=== PATIENT | female | born 1945 | race Caucasian/White ===

== ENCOUNTER 2021-11-15 17:37 | Inpatient (IN) | payer MEDICARE ==
[~2021-11-15] VITALS: Ht 154.9 cm; Wt 52.6 kg
[2021-11-15] MEDS ORDERED: IBUPROFEN 600 MG TAB PO STA (18:03)
[2021-11-15] MEDS: SODIUM CHLORIDE 0.9% 1000ML 1,000 ML IV SCH ×3 (18:15→21:00)
[2021-11-15] MEDS ORDERED: ACETAMINOPHEN 325 MG TAB PO ONE (18:15)
[2021-11-15] MEDS ORDERED: CEFTRIAXONE 1 GM VIAL IM ONE (18:15)
[2021-11-15 18:39] LABS: BASOPHILS % 0.2 % (0.0-1.0); HEMATOCRIT 40.3 % (34.2-44.1); HEMOGLOBIN 12.8 g/dL (12.0-16.0); LYMPHOCYTES # (AUTO) 0.9 (1.0-3.2); LYMPHOCYTES % 4.6 % (18.0-39.1); MEAN CORPUSCULAR HEMOGLOBIN 27.8 pg (28-32); MEAN CORPUSCULAR HGB CONC 31.8 g/dL (31-35); MEAN CORPUSCULAR VOLUME 87.6 fL (81-99); MONOCYTES # (AUTO) 1.6 (0.2-0.8); NEUTROPHILS # (AUTO) 17.3 (2.1-6.9); NEUTROPHILS % 86.5 % (38.7-80.0); PLATELET COUNT 238 x10e3/uL (140-360); RED CELL DISTRIBUTION WIDTH 13.5 % (11.7-14.4)
[2021-11-15 19:01] LABS: ALBUMIN 3.4 g/dL (3.5-5.0); ALBUMIN/GLOBULIN RATIO 1.3 (0.8-2.0); ANION GAP 15.4 mmol/L (8-16); CALCIUM 8.9 mg/dL (8.4-10.2); CREATININE, SERUM 0.75 mg/dL (0.57-1.11); POTASSIUM 4.4 mmol/L (3.5-5.1)
[2021-11-15] MEDS ORDERED: ONDANSETRON HCL INJ 2MG/ML 2ML 2 MG/ML VIAL IV PRN (19:30)
[2021-11-15 21:02] VITALS: BP 96/63
[2021-11-15 21:14] VITALS: BP 103/57
[2021-11-16] VITALS (11 sets, daily range): BP systolic 98–133; BP diastolic 47–61
[2021-11-16] MEDS ORDERED: METHOCARBAMOL750 MG PO (01:53)
[2021-11-16] MEDS ORDERED: BENICAR20 MG PO (01:53)
[2021-11-16] MEDS ORDERED: INDERAL XL80 MG PO (01:53)
[2021-11-16] MEDS ORDERED: OMEPRAZOLE40 MG PO (01:53)
[2021-11-16] MEDS ORDERED: PAMELOR25 MG PO (01:53)
[2021-11-16 06:48] LABS: BASOPHILS # (AUTO) 0.1 (0.0-0.1); BASOPHILS % 0.2 % (0.0-1.0); EOSINOPHILS % 0.1 % (0.0-6.0); HEMATOCRIT 35.1 % (34.2-44.1); HEMOGLOBIN 10.9 g/dL (12.0-16.0); LYMPHOCYTES # (AUTO) 1.3 (1.0-3.2); LYMPHOCYTES % 5.7 % (18.0-39.1); MEAN CORPUSCULAR HEMOGLOBIN 27.7 pg (28-32); MEAN CORPUSCULAR HGB CONC 31.1 g/dL (31-35); MEAN CORPUSCULAR VOLUME 89.3 fL (81-99); MONOCYTES # (AUTO) 1.7 (0.2-0.8); MONOCYTES % 7.8 % (4.4-11.3); NEUTROPHILS # (AUTO) 18.9 (2.1-6.9); NEUTROPHILS % 85.3 % (38.7-80.0); PLATELET COUNT 193 x10e3/uL (140-360); RED BLOOD COUNT 3.93 x10e6/uL (3.6-5.1); RED CELL DISTRIBUTION WIDTH 13.5 % (11.7-14.4)
[2021-11-16 07:06] LABS: ANION GAP 11.3 mmol/L (8-16); CALCIUM 8.6 mg/dL (8.4-10.2); CREATININE, SERUM 0.63 mg/dL (0.57-1.11); POTASSIUM 4.3 mmol/L (3.5-5.1)
[2021-11-16] MEDS: SODIUM CHLORIDE 0.9% 1000ML 1,000 ML IV SCH ×4 (07:29→20:55)
[2021-11-16] MEDS: CEFTRIAXONE 1 GM in SODIUM CHLORIDE 0.9% 50ML 50 ML IV SCH (09:15)
[2021-11-16] MEDS: ALBUTEROL SULF 0.083% NEB SOLN 3 ML NEB NEB SCH ×4 (10:45→22:25)
[2021-11-16] MEDS: IPRATROPIUM BROMIDE 0.02% 2.5 ML NEB NEB SCH ×4 (10:45→22:25)
[2021-11-16] MEDS ORDERED: ACETAMIN-CODE12.5 ML PO (11:52)
[2021-11-16] MEDS ORDERED: BUTORPHANOL (11:52)
[2021-11-16] MEDS ORDERED: ACETAMINOPHEN/CODEINE 300MG - 30MG TAB ONE (15:29)
[2021-11-16] MEDS: ENOXAPARIN SOD INJ 40 MG/0.4 ML SYR SC SCH (17:59)
[2021-11-16] MEDS: NORTRIPTYLINE HCL 25 MG CAP PO SCH (21:48)
[2021-11-16] MEDS: ACETAMINOPHEN/CODEINE 300MG - 30MG TAB PO PRN (23:19)
[2021-11-17] VITALS (7 sets, daily range): BP systolic 115–138; BP diastolic 62–75
[2021-11-17] MEDS: IPRATROPIUM BROMIDE 0.02% 2.5 ML NEB NEB SCH ×4 (02:20→19:00)
[2021-11-17] MEDS: ALBUTEROL SULF 0.083% NEB SOLN 3 ML NEB NEB SCH ×2 (02:20→06:35)
[2021-11-17] MEDS: SODIUM CHLORIDE 0.9% 1000ML 1,000 ML IV SCH ×2 (04:26→14:29)
[2021-11-17 05:47] LABS: BASOPHILS % 0.2 % (0.0-1.0); EOSINOPHILS % 0.2 % (0.0-6.0); HEMOGLOBIN 10.5 g/dL (12.0-16.0); LYMPHOCYTES # (AUTO) 1.4 (1.0-3.2); LYMPHOCYTES % 9.5 % (18.0-39.1); MEAN CORPUSCULAR HEMOGLOBIN 28.1 pg (28-32); MEAN CORPUSCULAR HGB CONC 31.8 g/dL (31-35); MEAN CORPUSCULAR VOLUME 88.2 fL (81-99); MONOCYTES # (AUTO) 1.3 (0.2-0.8); MONOCYTES % 8.9 % (4.4-11.3); NEUTROPHILS # (AUTO) 11.5 (2.1-6.9); NEUTROPHILS % 80.7 % (38.7-80.0); PLATELET COUNT 187 x10e3/uL (140-360); RED BLOOD COUNT 3.74 x10e6/uL (3.6-5.1); RED CELL DISTRIBUTION WIDTH 13.6 % (11.7-14.4)
[2021-11-17 06:25] LABS: ALBUMIN 2.3 g/dL (3.5-5.0); ALBUMIN/GLOBULIN RATIO 0.9 (0.8-2.0); CALCIUM 8.1 mg/dL (8.4-10.2); CREATININE, SERUM 0.58 mg/dL (0.57-1.11)
[2021-11-17] MEDS: PANTOPRAZOLE SOD 40 MG TABEC PO SCH (07:30)
[2021-11-17] MEDS: ACETAMINOPHEN/CODEINE 300MG - 30MG TAB PO PRN ×2 (07:45→21:59)
[2021-11-17] MEDS ORDERED: POTASSIUM CHLORIDE 20 MEQ TAB CR PO STA (08:19)
[2021-11-17] MEDS ORDERED: PROPRANOLOL HCL 160 MG PO SCH (09:00)
[2021-11-17] MEDS ORDERED: OLMESARTAN 20 MG TAB PO SCH (09:00)
[2021-11-17] MEDS ORDERED: PROPRANOLOL HCL 80 MG CAPCR PO SCH (09:00)
[2021-11-17] MEDS ORDERED: PANTOPRAZOLE SOD 40 MG TABEC PO SCH (09:00)
[2021-11-17] MEDS: CEFTRIAXONE 1 GM in SODIUM CHLORIDE 0.9% 50ML 50 ML IV SCH (09:24)
[2021-11-17] MEDS: LEVALBUTEROL HCL SOLN NEBU 0.63 MG/3 ML NEB INH SCH ×2 (12:45→19:00)
[2021-11-17] MEDS: ENOXAPARIN SOD INJ 40 MG/0.4 ML SYR SC SCH (16:51)
[2021-11-17] MEDS: NORTRIPTYLINE HCL 25 MG CAP PO SCH (21:23)
[2021-11-17 22:16] LABS: CLARITY,URINE CLEAR (CLEAR); COLOR,URINE YELLOW (YELLOW)
[2021-11-17 22:17] LABS: KETONES,URINE 2+ (NEGATIVE); LEUKOCYTE ESTERASE ,URINE NEGATIVE (NEGATIVE); NITRITE,URINE NEGATIVE (NEGATIVE); PROTEIN,URINE DIPSTICK TRACE (NEGATIVE); URINE UROBILINOGEN 0.2 mg/dL (0.2 - 1)
[2021-11-17 22:25] LABS: BACTERIA,URINE MANY /HPF; EPITHELIAL CELLS,URINE FEW /LPF; MUCUS,URINE MANY (RARE)
[2021-11-18] VITALS (8 sets, daily range): BP systolic 128–163; BP diastolic 63–82
[2021-11-18] MEDS: IPRATROPIUM BROMIDE 0.02% 2.5 ML NEB NEB SCH ×4 (00:05→20:00)
[2021-11-18] MEDS: LEVALBUTEROL HCL SOLN NEBU 0.63 MG/3 ML NEB INH SCH ×4 (00:05→20:00)
[2021-11-18] MEDS: PANTOPRAZOLE SOD 40 MG TABEC PO SCH (07:30)
[2021-11-18 07:55] LABS: ANION GAP 12.5 mmol/L (8-16); CALCIUM 8.6 mg/dL (8.4-10.2); CREATININE, SERUM 0.59 mg/dL (0.57-1.11); POTASSIUM 3.5 mmol/L (3.5-5.1)
[2021-11-18] MEDS: ACETAMINOPHEN/CODEINE 300MG - 30MG TAB PO PRN ×2 (08:12→17:00)
[2021-11-18] MEDS: PROPRANOLOL HCL 80 MG CAPCR PO SCH (09:00)
[2021-11-18] MEDS: CEFTRIAXONE 1 GM in SODIUM CHLORIDE 0.9% 50ML 50 ML IV SCH (09:15)
[2021-11-18] MEDS: SODIUM CHLORIDE 0.9% 1000ML 1,000 ML IV SCH (11:31)
[2021-11-18] MEDS: PIPERACILLIN/TAZOBACTAM 3.375 GM in SODIUM CHLORIDE 0.9% 50ML 50 ML IV SCH ×2 (12:00→17:06)
[2021-11-18] MEDS: ENOXAPARIN SOD INJ 40 MG/0.4 ML SYR SC SCH (16:53)
[2021-11-18] MEDS: NORTRIPTYLINE HCL 25 MG CAP PO SCH (20:19)
[2021-11-19] MEDS: PIPERACILLIN/TAZOBACTAM 3.375 GM in SODIUM CHLORIDE 0.9% 50ML 50 ML IV SCH ×5 (00:03→23:27)
[2021-11-19] MEDS: LEVALBUTEROL HCL SOLN NEBU 0.63 MG/3 ML NEB INH SCH ×4 (01:10→19:10)
[2021-11-19] MEDS: IPRATROPIUM BROMIDE 0.02% 2.5 ML NEB NEB SCH ×4 (01:10→19:10)
[2021-11-19 04:00] VITALS: BP 171/88
[2021-11-19 05:48] LABS: BASOPHILS % 0.5 % (0.0-1.0); EOSINOPHILS # (AUTO) 0.2 (0.0-0.4); EOSINOPHILS % 2.7 % (0.0-6.0); HEMATOCRIT 31.1 % (34.2-44.1); HEMOGLOBIN 10.3 g/dL (12.0-16.0); LYMPHOCYTES # (AUTO) 1.1 (1.0-3.2); LYMPHOCYTES % 11.8 % (18.0-39.1); MEAN CORPUSCULAR HEMOGLOBIN 27.9 pg (28-32); MEAN CORPUSCULAR HGB CONC 33.1 g/dL (31-35); MEAN CORPUSCULAR VOLUME 84.3 fL (81-99); MONOCYTES % 11.4 % (4.4-11.3); NEUTROPHILS # (AUTO) 6.5 (2.1-6.9); NEUTROPHILS % 73.1 % (38.7-80.0); PLATELET COUNT 229 x10e3/uL (140-360); RED BLOOD COUNT 3.69 x10e6/uL (3.6-5.1); RED CELL DISTRIBUTION WIDTH 13.3 % (11.7-14.4)
[2021-11-19 06:17] LABS: ALBUMIN 2.2 g/dL (3.5-5.0); ALBUMIN/GLOBULIN RATIO 0.8 (0.8-2.0); ANION GAP 14.1 mmol/L (8-16); CALCIUM 8.6 mg/dL (8.4-10.2); CREATININE, SERUM 0.64 mg/dL (0.57-1.11); MAGNESIUM 1.2 MG/DL (1.3-2.1); POTASSIUM 3.1 mmol/L (3.5-5.1)
[2021-11-19] MEDS: SODIUM CHLORIDE 0.9% 1000ML 1,000 ML IV SCH (07:09)
[2021-11-19] MEDS ORDERED: POTASSIUM CHLORIDE 20 MEQ TAB CR PO STA (08:42)
[2021-11-19] MEDS ORDERED: KCL 20 MEQ PACKET/ ORAL SOLN NG NR (08:45)
[2021-11-19] MEDS ORDERED: BUTORPHANOL TARTRATE INJ 1 MG/ML VIAL INJ PRN (08:45)
[2021-11-19] MEDS ORDERED: POTASSIUM CHLORIDE 20 MEQ TAB CR PO SCH (09:00)
[2021-11-19] MEDS: PANTOPRAZOLE SOD 40 MG TABEC PO SCH (09:15)
[2021-11-19] MEDS: AZITHROMYCIN 250 MG TAB PO SCH (09:16)
[2021-11-19] MEDS: PROPRANOLOL HCL 80 MG CAPCR PO SCH (09:16)
[2021-11-19] MEDS: KCL 20 MEQ PACKET/ ORAL SOLN NG SCH (09:16)
[2021-11-19] MEDS: BENAZEPRIL HCL 10 MG TAB PO SCH (09:27)
[2021-11-19] MEDS: ACETAMINOPHEN/CODEINE 300MG - 30MG TAB PO PRN ×2 (09:28→15:51)
[2021-11-19 10:35] VITALS: BP 159/81
[2021-11-19 12:06] VITALS: BP 131/63
[2021-11-19] MEDS: ENOXAPARIN SOD INJ 40 MG/0.4 ML SYR SC SCH (17:00)
[2021-11-19 19:59] VITALS: BP 135/65
[2021-11-19 20:00] VITALS: BP 135/65
[2021-11-19] MEDS: NORTRIPTYLINE HCL 25 MG CAP PO SCH (20:29)
[2021-11-19 23:54] VITALS: BP 129/66
[2021-11-20] VITALS (7 sets, daily range): BP systolic 113–162; BP diastolic 63–82
[2021-11-20 05:03] LABS: BASOPHILS % 0.3 % (0.0-1.0); EOSINOPHILS # (AUTO) 0.3 (0.0-0.4); EOSINOPHILS % 3.4 % (0.0-6.0); HEMATOCRIT 32.7 % (34.2-44.1); HEMOGLOBIN 10.4 g/dL (12.0-16.0); LYMPHOCYTES # (AUTO) 1.7 (1.0-3.2); LYMPHOCYTES % 19.1 % (18.0-39.1); MEAN CORPUSCULAR HEMOGLOBIN 27.6 pg (28-32); MEAN CORPUSCULAR HGB CONC 31.8 g/dL (31-35); MEAN CORPUSCULAR VOLUME 86.7 fL (81-99); MONOCYTES # (AUTO) 1.1 (0.2-0.8); MONOCYTES % 12.5 % (4.4-11.3); NEUTROPHILS # (AUTO) 5.6 (2.1-6.9); NEUTROPHILS % 64.5 % (38.7-80.0); PLATELET COUNT 264 x10e3/uL (140-360); RED BLOOD COUNT 3.77 x10e6/uL (3.6-5.1); RED CELL DISTRIBUTION WIDTH 13.6 % (11.7-14.4)
[2021-11-20 05:33] LABS: CREATININE, SERUM 0.66 mg/dL (0.57-1.11)
[2021-11-20] MEDS: IPRATROPIUM BROMIDE 0.02% 2.5 ML NEB NEB SCH ×3 (06:00→20:10)
[2021-11-20] MEDS: LEVALBUTEROL HCL SOLN NEBU 0.63 MG/3 ML NEB INH SCH ×3 (06:00→20:10)
[2021-11-20] MEDS: PIPERACILLIN/TAZOBACTAM 3.375 GM in SODIUM CHLORIDE 0.9% 50ML 50 ML IV SCH ×4 (06:00→19:43)
[2021-11-20] MEDS ORDERED: POTASSIUM CHLORIDE 20 MEQ TAB CR PO ONE (08:00)
[2021-11-20] MEDS ORDERED: BUTORPHANOL TARTRATE 2 MG/ML VIAL IV PRN (08:15)
[2021-11-20] MEDS: PANTOPRAZOLE SOD 40 MG TABEC PO SCH (08:19)
[2021-11-20] MEDS: KCL 20 MEQ PACKET/ ORAL SOLN NG SCH (09:00)
[2021-11-20] MEDS: PROPRANOLOL HCL 80 MG CAPCR PO SCH (09:00)
[2021-11-20] MEDS: BENAZEPRIL HCL 10 MG TAB PO SCH (09:00)
[2021-11-20] MEDS: AZITHROMYCIN 250 MG TAB PO SCH (09:15)
[2021-11-20] MEDS: NYSTATIN SUSPENSION 5 ML UDC PO SCH ×3 (13:03→21:55)
[2021-11-20] MEDS: ENOXAPARIN SOD INJ 40 MG/0.4 ML SYR SC SCH (18:10)
[2021-11-20] MEDS: NORTRIPTYLINE HCL 25 MG CAP PO SCH (20:43)
[2021-11-20] MEDS: ACETAMINOPHEN/CODEINE 300MG - 30MG TAB PO PRN (21:55)
[2021-11-21] VITALS (8 sets, daily range): BP systolic 111–142; BP diastolic 53–70
[2021-11-21] MEDS: LEVALBUTEROL HCL SOLN NEBU 0.63 MG/3 ML NEB INH SCH ×4 (01:30→18:55)
[2021-11-21] MEDS: IPRATROPIUM BROMIDE 0.02% 2.5 ML NEB NEB SCH ×4 (01:30→18:55)
[2021-11-21] MEDS: NYSTATIN SUSPENSION 5 ML UDC PO SCH ×5 (06:07→22:31)
[2021-11-21] MEDS: PIPERACILLIN/TAZOBACTAM 3.375 GM in SODIUM CHLORIDE 0.9% 50ML 50 ML IV SCH ×5 (06:07→16:28)
[2021-11-21] MEDS: PANTOPRAZOLE SOD 40 MG TABEC PO SCH (09:42)
[2021-11-21] MEDS: KCL 20 MEQ PACKET/ ORAL SOLN NG SCH (09:42)
[2021-11-21] MEDS: AZITHROMYCIN 250 MG TAB PO SCH (09:43)
[2021-11-21] MEDS: BENAZEPRIL HCL 10 MG TAB PO SCH (09:43)
[2021-11-21] MEDS: PROPRANOLOL HCL 80 MG CAPCR PO SCH (09:43)
[2021-11-21] MEDS: ACETAMINOPHEN/CODEINE 300MG - 30MG TAB PO PRN ×2 (09:44→22:31)
[2021-11-21] MEDS ORDERED: ONDANSETRON HCL 4 MG ORAL DISINTEGRATING TAB PO PRN (12:00)
[2021-11-21] MEDS: ENOXAPARIN SOD INJ 40 MG/0.4 ML SYR SC SCH (16:28)
[2021-11-21] MEDS: NORTRIPTYLINE HCL 25 MG CAP PO SCH (22:31)
[2021-11-22] VITALS: BP 125/72
[2021-11-22] MEDS: PIPERACILLIN/TAZOBACTAM 3.375 GM in SODIUM CHLORIDE 0.9% 50ML 50 ML IV SCH ×2 (00:30→06:16)
[2021-11-22] MEDS: IPRATROPIUM BROMIDE 0.02% 2.5 ML NEB NEB SCH (01:10)
[2021-11-22] MEDS: LEVALBUTEROL HCL SOLN NEBU 0.63 MG/3 ML NEB INH SCH (01:10)
[2021-11-22 04:15] VITALS: BP 119/65
[2021-11-22] MEDS: NYSTATIN SUSPENSION 5 ML UDC PO SCH (06:16)
== END 2021-11-22 08:43 | disposition home or self-care (01) | DRG 871 ==
LOC: ER 17:45 → ERHOLD 19:57 → MED/SURG2 20:41
PROVIDERS: ADMIT Internal Medicine; ATTEND Internal Medicine
DX: A41.9 Sepsis, unspecified organism (principal); J18.9 Pneumonia, unspecified organism; J44.0 Chronic obstructive pulmonary disease with (acute) lower respiratory infection; J44.1 Chronic obstructive pulmonary disease with (acute) exacerbation; N39.0 Urinary tract infection, site not specified; E44.1 Mild protein-calorie malnutrition; I10 Essential (primary) hypertension; K58.9 Irritable bowel syndrome, unspecified; Z88.6 Allergy status to analgesic agent; Z20.822 Contact with and (suspected) exposure to COVID-19; Z83.6 Family history of other diseases of the respiratory system; Z82.49 Family history of ischemic heart disease and other diseases of the circulatory system; Z84.89 Family history of other specified conditions; F17.200 Nicotine dependence, unspecified, uncomplicated; K21.9 Gastro-esophageal reflux disease without esophagitis; D64.9 Anemia, unspecified; Z68.21 Body mass index [BMI] 21.0-21.9, adult; R06.89 Other abnormalities of breathing; R09.02 Hypoxemia
CPT/HCPCS: 36415; 71045; 71046; 71250; 80048; 80053; 81001; 83605; 83735; 84484; 85025; 87040; 87070; 87086; 87205; 93005; 94640; 94799; 96361; 99251; 99284; J0456; J0595; J0696; J1650; J2543; J7030; J7050; U0002